=== PATIENT | female | born 1980 | race Caucasian/White ===

== ENCOUNTER → 2017-12-16 14:24 | Outpatient (CLI) | payer OTHER, SELFPAY | PROVIDERS: PCP Family Medicine; Visit Provider Physician Assistant | DX: N89.8 Other specified noninflammatory disorders of vagina (principal) | CPT/HCPCS: 87210 ==

== ENCOUNTER → 2018-04-04 09:30 | Outpatient (CLI) | payer OTHER, SELFPAY ==
--- NOTE | 2018-04-04 | DI.MG.S_ITS ---
BILATERAL DIGITAL SCREENING MAMMOGRAM 3D/2D WITH CAD WITH AUGMENTATION: 04/04/2018 CLINICAL: Routine screening. Comparison is made to exams dated: 04/03/2017 mammogram, 03/30/2015 mammogram, and 01/11/2013 mammogram - [facility]. There are scattered fibroglandular elements in both breasts. Current study was also evaluated with a Computer Aided Detection (CAD) system. Bilateral breast implants are stable. There are benign calcifications in both breasts. No significant masses, calcifications, or other findings are seen in either breast. There has been no significant interval change. IMPRESSION: There is no mammographic evidence of malignancy. A 1 year screening mammogram is recommended. NOTE: For mammograms, a report in lay terms will be sent to the patient. Approximately 15% of breast malignancies will not be visualized mammographically. In the management of a palpable breast mass, a negative mammogram must not discourage biopsy of a clinically suspicious lesion. Electronically Signed By: Addie leroy/shekhar:04/04/2018 14:50:45 letter sent: Normal Exam ACR BI-RADS Category 2: Benign Finding(s) 3342F
== END ==
PROVIDERS: PCP Family Medicine; Visit Provider Family Medicine
DX: Z12.31 Encounter for screening mammogram for malignant neoplasm of breast (principal)
CPT/HCPCS: 77063; 77067

== ENCOUNTER → 2018-04-20 08:33 | Outpatient (CLI) | payer OTHER, SELFPAY ==
[2018-04-24 11:45] LABS: Z- Score (Female) 1.3 SD (-2.0 - +2.0)
[2018-04-24 15:23] LABS: Progesterone 12.8 ng/mL
== END ==
PROVIDERS: PCP Family Medicine; Visit Provider Nurse Practitioner Family
DX: N95.9 Unspecified menopausal and perimenopausal disorder (principal); L65.9 Nonscarring hair loss, unspecified
CPT/HCPCS: 36415; 84144; 84305

== ENCOUNTER → 2018-08-09 08:17 | Outpatient (CLI) | payer OTHER, SELFPAY | PROVIDERS: PCP Family Medicine; Visit Provider Physician Assistant | DX: N39.0 Urinary tract infection, site not specified (principal) | CPT/HCPCS: 87077; 87086; 87186 ==

== ENCOUNTER → 2019-01-01 09:02 | Outpatient (CLI) | payer OTHER, SELFPAY | PROVIDERS: PCP Family Medicine; Visit Provider Physician Assistant | DX: N30.01 Acute cystitis with hematuria (principal) | CPT/HCPCS: 87077; 87086; 87186 ==

== ENCOUNTER → 2019-02-08 09:41 | Outpatient (CLI) | payer OTHER, SELFPAY ==
[2019-02-08 12:06] LABS: Urine N gonorrhoeae NOT DETECTED
[2019-02-08 12:13] LABS: Urine Chlamydia NOT DETECTED
== END ==
PROVIDERS: PCP Family Medicine; Visit Provider Physician Assistant
DX: N89.8 Other specified noninflammatory disorders of vagina (principal)
CPT/HCPCS: 87210; 87491; 87591

== ENCOUNTER → 2019-03-12 07:31 | Outpatient (CLI) | payer OTHER, SELFPAY ==
[2019-03-12 08:49] LABS: Add Manual Diff / Slide Review NO; Basophils Absolute Auto 0 /uL (0-100); Basophils Percent Auto 0.6 % (0-2); Eosinophils Absolute Auto 100 /uL (0-450); Eosinophils Percent Auto 2.9 % (2-4); Hematocrit 38.4 % (36-46); Lymphocytes Absolute Auto 1400 /uL (1100-4500); Lymphocytes Percent Auto 35.2 % (25-40); Mean Corpuscular HGB Conc 33.9 % (30-36); Mean Corpuscular Hemoglobin 30.3 PG (26-34); Mean Corpuscular Volume 89.3 fL (80-100); Monocytes Absolute Auto 300 /uL (0-900); Monocytes Percent Auto 6.5 % (3-14); Neutrophils Absolute Auto 2100 /uL (1500-7000); Neutrophils Percent Auto 54.8 % (50-75); Platelet Count 167 X10^3/uL (150-400); Red Cell Distribution Width 12.2 % (11.6-14.8); White Blood Cell Count 3.9 X10^3/uL (4.5-11.0)
[2019-03-12 08:57] LABS: Alanine Aminotransferase 16 IU/L (9-52); Albumin Globulin Ratio 1.5 (1.0-2.8); Alkaline Phosphatase 41 U/L (38-126); Aspartate Aminotransferase 20 IU/L (14-36); BUN Creatinine Ratio 22.9 (6-22); Bilirubin Total 0.8 mg/dL (0.2-1.3); Blood Urea Nitrogen 16 mg/dL (7-17); Calcium 9.2 mg/dL (8.4-10.2); Carbon Dioxide 26 mmol/L (22-32); Chloride 106 mmol/L (98-107); Cholesterol 173 mg/dL (140-199); Estimated Glomerular Filt Rate > 60.0 mL/min (>60); Globulin 2.7 g/dL (1.7-4.1); Glucose 102 mg/dL (70-100); HDL Cholesterol 53 mg/dL (40-60); HEMOLYSIS < 15 (0-50); LDL Cholesterol Calculated 102 mg/dL (<100); Potassium 3.8 mmol/L (3.4-5.1); Sodium 141 mmol/L (137-145); Total Protein 6.7 g/dL (6.3-8.2); Triglycerides 91 mg/dL (35-150)
[2019-03-12 09:27] LABS: Ferritin 83.3 ng/mL (6.27-137)
[2019-03-12 09:38] LABS: TSH w/ Reflex to FT4 2.79 uIU/mL (0.47-4.68)
== END ==
PROVIDERS: PCP Family Medicine; Visit Provider Family Medicine
DX: E03.9 Hypothyroidism, unspecified (principal); L65.9 Nonscarring hair loss, unspecified
CPT/HCPCS: 36415; 80053; 80061; 82728; 84443; 85025

== ENCOUNTER → 2019-04-10 09:32 | Outpatient (CLI) | payer OTHER, SELFPAY ==
--- NOTE | 2019-04-10 | DI.MG.S_ITS ---
BILATERAL DIGITAL SCREENING MAMMOGRAM 3D/2D WITH CAD WITH AUGMENTATION: 04/10/2019 CLINICAL: Patient presents for routine screening. S/P bilateral augmentation. Comparison is made to exams dated: 04/04/2018 mammogram, 04/03/2017 mammogram, and 03/30/2015 mammogram - [facility]. The tissue of both breasts is heterogeneously dense. This may lower the sensitivity of mammography. Current study was also evaluated with a Computer Aided Detection (CAD) system. Bilateral breast implants are stable. There are benign calcifications in both breasts. No significant masses, calcifications, or other findings are seen in either breast. There has been no significant interval change. IMPRESSION: There is no mammographic evidence of malignancy. A 1 year screening mammogram is recommended. This exam was interpreted at Station ID: [id number]. NOTE: For mammograms, a report in lay terms will be sent to the patient. Approximately 15% of breast malignancies will not be visualized mammographically. In the management of a palpable breast mass, a negative mammogram must not discourage biopsy of a clinically suspicious lesion. Electronically Signed By: Conor tam/shekhar:04/10/2019 10:38:43 letter sent: Normal Exam ACR BI-RADS Category 2: Benign Finding(s) 3342F
== END ==
PROVIDERS: PCP Family Medicine; Visit Provider Family Medicine
DX: Z12.31 Encounter for screening mammogram for malignant neoplasm of breast (principal); Z98.82 Breast implant status
CPT/HCPCS: 77063; 77067

== ENCOUNTER → 2019-07-02 16:35 | Outpatient (CLI) | payer OTHER, SELFPAY ==
[2019-07-04 16:22] LABS: Urea Breath Test >18YRS NOT DETECTED
== END ==
PROVIDERS: PCP Family Medicine; Referring Provider Family Medicine; Visit Provider Family Medicine
DX: K21.9 Gastro-esophageal reflux disease without esophagitis (principal)
CPT/HCPCS: 83013

== ENCOUNTER → 2019-12-27 09:46 | Outpatient (CLI) | payer OTHER, SELFPAY ==
--- NOTE | 2019-12-27 09:50 | DI.MG.S_ITS ---
BILATERAL DIGITAL DIAGNOSTIC MAMMOGRAM 3D/2D WITH AUGMENTATION: 12/27/2019 CLINICAL: Possible Implant rupture. Painful left breast. Comparison is made to exams dated: 04/10/2019 mammogram, 04/04/2018 mammogram, and 04/03/2017 mammogram - [facility]. The tissue of both breasts is heterogeneously dense. This may lower the sensitivity of mammography. No significant masses, calcifications, or other findings are seen in either breast. IMPRESSION: INCOMPLETE: NEEDS ADDITIONAL IMAGING EVALUATION There is no abnormality seen in the left breast to correspond with the pain, however, breast MRI is recommended. There is no abnormality seen in the left breast to correspond with the palpable abnormality at 3 o'clock, however, ultrasound is recommended. This exam was interpreted at Station ID: [id number]. NOTE: For mammograms, a report in lay terms will be sent to the patient. Approximately 15% of breast malignancies will not be visualized mammographically. In the management of a palpable breast mass, a negative mammogram must not discourage biopsy of a clinically suspicious lesion. Electronically Signed By: Onel sampson/shekhar:12/27/2019 10:24:58 copy to: Sabina Shea, ph: [phone], fax: [phone] ACR BI-RADS Category 0: Incomplete 3340F
--- NOTE | 2019-12-27 09:51 | DI.MRI.S_ITS ---
BREAST MRI OF BOTH BREASTS: 12/27/2019 CLINICAL: Implant rupture. Comparison is made to exams dated: 12/27/2019 ultrasound, 12/27/2019 mammogram, 04/10/2019 mammogram, and 04/04/2018 mammogram - [facility]. Interpretation of this MRI was correlated with available mammograms and ultrasounds. The patient was placed prone in a dedicated breast imaging coil. Axial T1 and STIR, axial silicone specific STIR , sagittal T2 with fat saturation, sagittal silicone specific STIR, and coronal T2 obtained. Image quality: There is inhomogeneous fat saturation limiting evaluation. Right breast: A subpectoral silicone implant appears intact. Internal radial folds are demonstrated. No evidence of intracapsular or extracapsular rupture. No discrete mass or fluid collection demonstrated in the right breast in the absence of intravenous contrast. Left breast: A subpectoral silicone implant is demonstrated. There are asymmetric internal curvilinear filling defects within the implant capsule consistent with an intracapsular rupture. No evidence of extracapsular implant rupture. No extracapsular fluid collections identified in the left breast. No discrete mass identified in the absence of intravenous contrast. Miscellaneous: Within the anterior mediastinum, there is a thin-walled cyst measuring approximately 3.5 x 3.9 cm in transverse dimension likely representing a pericardial cyst. This is incompletely evaluated on the current study. No axillary or internal mammary lymphadenopathy by size criteria. IMPRESSION: 1. Findings consistent with left intracapsular implant rupture. No evidence of extracapsular rupture. 2. No extracapsular fluid collection demonstrated in the left breast. The findings on prior ultrasound likely represented a small loculated intracapsular fluid collection associated with intracapsular rupture. Recommend clinical follow-up of patient's pain symptoms. 3. Cystic collection demonstrated anteriorly within this mediastinum suggestive of a pericardial cyst. Further evaluation may be obtained with a chest CT with contrast. Return to annual mammogram screening schedule is recommended. This exam was interpreted at Station ID: [id number]. Electronically Signed By: Onel Frey M.D. ddjanes/:12/27/2019 13:29:48 copy to: Sabina Shea, ph: [phone], fax: [phone] letter sent: Clinical Evaluation ACR BI-RADS Category 2: Benign Finding(s) 3342F
--- NOTE | 2019-12-27 09:51 | DI.US.S_ITS ---
LIMITED ULTRASOUND OF LEFT BREAST: 12/27/2019 CLINICAL: Patient feels ripple in implant. Possible implant rupture. Comparison is made to exams dated: 12/27/2019 mammogram, 04/10/2019 mammogram, 04/04/2018 mammogram, 04/03/2017 mammogram, 03/30/2015 mammogram, and 01/11/2013 mammogram - [facility]. Color flow and real-time ultrasound of the left breast 3-5 o'clock region were performed on the areas of interest. There is a 1.9 cm x 1.4 cm x 0.8 cm irregular fluid collection in the left breast at 4 o'clock middle depth along the margin of the implant. This irregular fluid collection is hypoechoic. This correlates to the reported pain. Color flow imaging demonstrates that there is no vascularity present. IMPRESSION: INCOMPLETE: NEEDS ADDITIONAL IMAGING EVALUATION The 1.9 cm x 1.4 cm x 0.8 cm irregular fluid collection in the left breast is indeterminate and may relect implant rupture. An MRI is recommended. There is no abnormality seen in the left breast to correspond with the palpable abnormality at 3 o'clock, however, breast MRI is recommended and will be performed at the conclusion of this study. This exam was interpreted at Station ID: [id number]. Electronically Signed By: Onel Frey M.D. ddjanes/:12/27/2019 11:25:05 copy to: Vanige Berger, Sabina Ramires, ph: [phone], fax: [phone] Ultrasound BI-RADS: 0 Indeterminate
== END ==
PROVIDERS: PCP Family Medicine; Referring Provider Specialist; Visit Provider Specialist
DX: R92.8 Other abnormal and inconclusive findings on diagnostic imaging of breast (principal); T85.41XA Breakdown (mechanical) of breast prosthesis and implant, initial encounter; N64.4 Mastodynia; I31.8 Other specified diseases of pericardium
CPT/HCPCS: 76642; 77049; 77066; G0279; A9579

== ENCOUNTER → 2020-01-31 14:40 | Outpatient (CLI) | payer OTHER, SELFPAY | PROVIDERS: PCP Family Medicine; Visit Provider Physician Assistant | DX: B37.9 Candidiasis, unspecified (principal) | CPT/HCPCS: 87210 ==

== ENCOUNTER → 2020-02-11 15:41 | Outpatient (CLI) | payer OTHER, SELFPAY | PROVIDERS: PCP Family Medicine; Visit Provider Nurse Practitioner Family | DX: N89.8 Other specified noninflammatory disorders of vagina (principal) | CPT/HCPCS: 87210 ==

== ENCOUNTER → 2020-02-20 07:26 | Outpatient (CLI) | payer OTHER, SELFPAY ==
[2020-02-20 08:37] LABS: BUN Creatinine Ratio 16.7 (6-22); Blood Urea Nitrogen 13 mg/dL (7-17); Calcium 9.5 mg/dL (8.4-10.2); Carbon Dioxide 28 mmol/L (22-32); Chloride 105 mmol/L (98-107); Estimated Glomerular Filt Rate > 60.0 mL/min (>60); Glucose 92 mg/dL (70-100); HEMOLYSIS < 15 (0-50); Potassium 4.4 mmol/L (3.4-5.1); Sodium 141 mmol/L (137-145)
== END ==
PROVIDERS: PCP Family Medicine; Referring Provider Nurse Practitioner; Visit Provider Nurse Practitioner
DX: Q24.8 Other specified congenital malformations of heart (principal)
CPT/HCPCS: 36415; 80048

== ENCOUNTER → 2020-03-09 07:40 | Outpatient (CLI) | payer OTHER, SELFPAY ==
--- NOTE | 2020-03-09 | DI.NM.S_ITS ---
PROCEDURE: NM GASTRIC EMPTYING STUDY RADIOPHARMACEUTICAL: 1 mCi Tc-99m sulfur colloid in an egg sandwich. INDICATIONS: Gastritis,PERICARDIAL CYST. TECHNIQUE: A Tc-99m labeled sulfur colloid labeled egg sandwich or oatmeal was served to the patient. Anterior and posterior planar images of the abdomen were obtained at 0 minutes and 30 minutes, then at hourly intervals up to 4 hours. The patient was upright and ambulating during the interval. COMPARISON: [facility], CT, CT CHEST [facility], 03/09/2020, 10:34. FINDINGS: The stomach has normal size, morphology, and position. There is normal emptying of solid gastric contents from the stomach by visual inspection. No gastroesophageal reflux is visualized. The percentage of tracer retained at specific time points are as follows: Time point Percent gastric retention Normal range 30 minutes 70% 70% or more 1 hour 39% 30% to 90% 2 hours 9% 60% or less 3 hours -- 30% or less 4 hours - 10% or less IMPRESSION: Normal gastric emptying time. Dictated by: Parmjit Mariano M.D. on 03/09/2020 at 11:53 Approved by: Parmjit Mariano M.D. on 03/09/2020 at 12:02
--- NOTE | 2020-03-09 09:18 | DI.CT.S_ITS ---
PROCEDURE: CT CHEST W CON INDICATIONS: Gastritis, PERICARDIAL CYST TECHNIQUE: After the administration of intravenous contrast, 5 mm thick sections acquired from the pulmonary apices to the posterior costophrenic angles. 1 mm axial lung, 5 mm thick coronal and sagittal reformats and 7 mm axial MIP were acquired. For radiation dose reduction, the following was used: automated exposure control, adjustment of mA and/or kV according to patient size. COMPARISON: [facility], MR, MR BREAST BI WO/W CON, 12/27/2019, 11:18. FINDINGS: Image quality: Excellent. Lungs and pleura: No acute air space opacities. Right upper lobe subpleural pulmonary nodule measuring 0.4 cm, (3/49). Left upper lobe calcified granuloma. Biapical pleural scarring. No pleural effusions or pneumothorax. Central and peripheral airways are patent and normal in caliber. Mediastinum: Heart size is normal. No pericardial effusion. No mediastinal or hilar adenopathy by size criteria. Thoracic aorta and central pulmonary arteries are normal in size. Esophagus is normal in caliber. No hiatal hernia. Bones and chest wall: Bilateral breast implants. Irregularity of the left breast implant. No suspicious bony lesions. No vertebral body compression fractures. No axillary or supraclavicular adenopathy by size criteria. Thyroid gland is unremarkable. Abdomen: A pericardiac or intrahepatic homogeneous hypodense benign cyst measuring 4.5 x 4.2 cm. This appears to be below the diaphragm. On recent MRI this was uniformly T1 hypointense and T2 hyperintense. No adrenal nodule. Stomach is decompressed. No free fluid in the upper abdomen. IMPRESSION: 1. Lungs are clear. 2. Tiny 4 mm pulmonary nodule in the lower right upper lobe. 3. Upper abdominal midline benign cyst measuring 4.5 cm. Hepatic cysts favored over pericardiac cyst given its location below the diaphragm. 4. No free fluid in the upper abdomen. Dictated by: Sam Andrew M.D. on 03/09/2020 at 11:41 Approved by: Sam Andrew M.D. on 03/09/2020 at 11:56
== END ==
PROVIDERS: PCP Family Medicine; Referring Provider Family Medicine; Visit Provider Student in an Organized Health Care Education/Training Program
DX: K29.70 Gastritis, unspecified, without bleeding (principal); K30 Functional dyspepsia; I31.8 Other specified diseases of pericardium
CPT/HCPCS: 71260; 78264; A9541; Q9967

== ENCOUNTER → 2020-03-12 06:50 | Outpatient (CLI) | payer OTHER, SELFPAY ==
--- NOTE | 2020-03-12 | DI.ECHO.S_ITS ---
[facility] +---------+ : : [address] [place] : : : : [id number] : : : : Phone: [phone]+ Echocardiogram Report + + :Name: ALLYSON MOSS Study Date: 03/12/2020 Height: 65 in : :[facility] Weight: 127 lb: : Gender: Female BSA: 1.6 m2 : :: 1980 Age: 40 yrs BP: 98/60 mmHg: :Reason For Study: PERICARDIAL CYST : :Ordering Physician: Niru S : :Nigel Weinstein Performed By: Charlie Appiah : :Referring: UNSPECIFIED : + + Interpretation Summary The left ventricle is normal in size. The ejection fraction is estimated to be 60-65%. The right ventricle is normal in size and function. No significant valvular pathology seen. The IVC is dilated (diameter is greater than 2.1 cm) yet it collapses greater than 50% with a sniff. This suggests a right atrial pressure of 8 mm Hg. There is no pericardial effusion. No obvious pericardial cyst. Incidental finding of a hepatic cyst measuring approximately 3.8 cm x 3.8 cm is noted. Procedure: A two-dimensional transthoracic echocardiogram with color flow and Doppler was performed. The study quality was technically adequate. There is no prior echocardiogram noted for this patient. The patient was in normal sinus rhythm during the exam. Left Ventricle: The left ventricle is normal in size. There is normal left ventricular wall thickness. There is no thrombus. The ejection fraction is estimated to be 60-65%. There are no focal wall motion abnormalities. Diastolic parameters suggest a relaxation abnormality of the left ventricle, consistent with probable normal filling pressures. Right Ventricle: The right ventricle is normal in size and function. Atria: Both atria are normal in size. The interatrial septum grossly appears intact with no obvious evidence for an atrial septal defect. Mitral Valve: The mitral valve leaflets are slightly calcified. There is trace mitral regurgitation. Aortic Valve: The aortic valve is trileaflet. The aortic valve opens well. There is no aortic valve stenosis. No aortic regurgitation is present. Tricuspid Valve: The tricuspid valve is normal in structure and function. Pulmonary artery pressures cannot be estimated because of the lack of a measurable TR jet velocity. There is trace tricuspid regurgitation. Pulmonic Valve: The pulmonic valve is not well visualized. There is trace pulmonic regurgitation. Great Vessels: The aortic root is normal size. The dimensions of the ascending aorta are normal. The pulmonary artery is normal size. The IVC is dilated (diameter is greater than 2.1 cm) yet it collapses greater than 50% with a sniff. This suggests a right atrial pressure of 8 mm Hg. Pericardium/ Pleura There is no pericardial effusion. Incidental finding of a hepatic cyst measuring approximately 3.8 cm in diameter is noted. There is an anterior echo-free space consistent with a fat pad. There is no pleural effusion. MMode/2D Measurements & Calculations LVIDd: 4.2 cm LVOT diam: 2.0 cm LVIDs: 3.3 cm Ao root diam: 2.7 cm FS: 19.5 % asc Aorta Diam: 3.0 cm EPSS: 0.30 cm Ao Arch Diam (Prox Trans): 2.0 cm IVSd: 0.68 cm LVPWd: 0.80 cm LV whitney. diameter/BSA (cm/m^2): 2.5 LV sys. diameter/BSA (cm/m^2): 2.0 LA dimension: 3.5 cm RA long axis: 4.3 cm LA A2 area: 14.5 cm2 RA area: 12.3 cm2 LA A4 area: 18.1 cm2 RA vol: 29.7 ml LA length (vol): 5.2 cm RA : 18.2 ml/m2 LA vol: 42.8 ml IVC diam: 2.4 cm LA vol index: 26.2 ml/m2 TAPSE: 1.8 cm Doppler Measurements & Calculations Ao V2 max: 137.2 cm/sec LVOT Max Kota: 95.3 cm/sec Ao V2 mean: 107.2 cm/sec LV V1 max P.6 mmHg Ao max P.5 mmHg LV V1 VTI: 23.8 cm Ao mean P.9 mmHg PAWEL(I,D): 2.5 cm2 Ao V2 VTI: 28.5 cm PAWEL(V,D): 2.1 cm2 sev ratio: 0.83 PAWEL indexed to BSA (cm^2/m^2): 1.5 MV E max kota: 76.9 cm/sec PA V2 max: 76.1 cm/sec MV A max kota: 72.0 cm/sec PA V2 mean: 58.5 cm/sec MV E/A: 1.1 PA mean P.5 mmHg Med Peak E' Kota: 10.2 cm/sec PA pr(Accel): 12.2 mmHg E/E' med: 7.5 Lat Peak E' Kota: 9.8 cm/sec E/E' lat: 7.9 E/e' average: 7.7 MV dec time: 0.19 sec SV(OT): 71.7 ml Reading Physician:05:51 PM
== END ==
PROVIDERS: PCP Family Medicine; Referring Provider Family Medicine; Visit Provider Nurse Practitioner
DX: Q24.8 Other specified congenital malformations of heart (principal); K76.89 Other specified diseases of liver
CPT/HCPCS: 93306

== ENCOUNTER → 2020-04-04 08:02 | Outpatient (CLI) | payer OTHER, SELFPAY ==
[2020-04-04 09:42] LABS: Add Manual Diff / Slide Review NO; Basophils Absolute Auto 0 /uL (0-100); Basophils Percent Auto 0.7 % (0-2); Eosinophils Absolute Auto 100 /uL (0-450); Eosinophils Percent Auto 1.5 % (2-4); Hematocrit 40.9 % (36-46); Hemoglobin 13.7 g/dL (12.0-16.0); Lymphocytes Absolute Auto 1200 /uL (1100-4500); Lymphocytes Percent Auto 35.8 % (25-40); Mean Corpuscular HGB Conc 33.4 % (30-36); Mean Corpuscular Volume 89.7 fL (80-100); Monocytes Absolute Auto 200 /uL (0-900); Monocytes Percent Auto 5.8 % (3-14); Neutrophils Absolute Auto 1900 /uL (1500-7000); Neutrophils Percent Auto 56.2 % (50-75); Platelet Count 130 X10^3/uL (150-400); Red Blood Cell Count 4.56 X10^6/uL (4.0-5.2); Red Cell Distribution Width 12.4 % (11.6-14.8); White Blood Cell Count 3.4 X10^3/uL (4.5-11.0)
[2020-04-04 10:12] LABS: Alanine Aminotransferase 36 IU/L (<35); Albumin 4.4 g/dL (3.5-5.0); Albumin Globulin Ratio 1.4 (1.0-2.8); Alkaline Phosphatase 60 U/L (38-126); Aspartate Aminotransferase 31 IU/L (14-36); BUN Creatinine Ratio 26.9 (6-22); Bilirubin Total 0.9 mg/dL (0.2-1.3); Blood Urea Nitrogen 21 mg/dL (7-17); Calcium 9.7 mg/dL (8.4-10.2); Carbon Dioxide 30 mmol/L (22-32); Chloride 104 mmol/L (98-107); Estimated Glomerular Filt Rate > 60.0 mL/min (>60); Globulin 3.1 g/dL (1.7-4.1); Glucose 94 mg/dL (70-100); HEMOLYSIS < 15 (0-50); Potassium 3.9 mmol/L (3.4-5.1); Sodium 138 mmol/L (137-145); Total Protein 7.5 g/dL (6.3-8.2)
[2020-04-04 10:43] LABS: TSH w/ Reflex to FT4 1.54 uIU/mL (0.47-4.68)
[2020-04-06 11:39] LABS: SARS CoV19 IgG Negative (Negative)
== END ==
PROVIDERS: PCP Family Medicine; Referring Provider Family Medicine; Visit Provider Family Medicine
DX: Z00.01 Encounter for general adult medical examination with abnormal findings (principal); E03.9 Hypothyroidism, unspecified
CPT/HCPCS: 36415; 80053; 84443; 85025; 86769

== ENCOUNTER → 2020-04-11 09:22 | Outpatient (CLI) | payer OTHER, SELFPAY ==
[2020-04-11 10:14] LABS: COVID19 -Nasal RAPID Negative (Negative)
== END ==
PROVIDERS: PCP Family Medicine; Visit Provider Physician Assistant
DX: Z11.59 Encounter for screening for other viral diseases (principal)
CPT/HCPCS: 87635

== ENCOUNTER → 2020-05-14 10:00 | Outpatient (CLI) | payer OTHER, SELFPAY ==
--- NOTE | 2020-05-14 10:12 | DI.CT.S_ITS ---
PROCEDURE: CT ABDOMEN WO/W CON INDICATIONS: ABNORMAL FINDINGS ON DIAGNOSTIC IMAGING TECHNIQUE: 4 phase scanning was performed. Non-contrast 5 mm axial sections acquired from the diaphragm to the iliac crests. Following the administration of intravenous contrast, 5 mm thick arterial-phase, portal venous-phase, and 5-minute delayed phase images were acquired through the liver. 5 mm thick coronal and sagittal reformats were performed. For radiation dose reduction, the following was used: automated exposure control, adjustment of mA and/or kV according to patient size. COMPARISON: [facility] [place], [place], [place] GASTRIC EMPTYING STUDY, 03/09/2020, 8:08. [facility], CT, CT CHEST W CON, 03/09/2020, 10:34. FINDINGS: Image quality: Excellent. Lung bases: Lung bases are clear. Heart size is normal. Note is made of bilateral breast implants. Liver: There is a 3.8 x 4.1 x 3.7 cm simple appearing cyst in the superior aspect of segment IV, unchanged compared to 03/09/2020. Other solid organs: Gallbladder is normal . Biliary system is non dilated. Pancreas is normal in morphology. Spleen is normal in size and enhancement. No adrenal nodules. Both kidneys demonstrate normal size and enhancement, without hydronephrosis or nephrolithiasis. Nodes and vessels: No retroperitoneal or mesenteric adenopathy by size criteria. Aorta and inferior vena cava are normal in size. Bowel and peritoneum: Unenhanced bowel loops are normal in caliber. No free fluid or air. Bones: No suspicious bony lesions. No vertebral body compression fractures. Miscellaneous: No ventral hernias. IMPRESSION: 1. A 3.8 x 4.1 x 3.7 cm benign cyst in the superior aspect of segment IV of liver, unchanged in size. No further follow-up is recommended. Dictated by: Parmjit Mariano M.D. on 05/14/2020 at 16:39 Approved by: Parmjit Mariano M.D. on 05/14/2020 at 16:45
== END ==
PROVIDERS: PCP Family Medicine; Referring Provider Student in an Organized Health Care Education/Training Program; Visit Provider Student in an Organized Health Care Education/Training Program
DX: R93.5 Abnormal findings on diagnostic imaging of other abdominal regions, including retroperitoneum (principal); K76.89 Other specified diseases of liver
CPT/HCPCS: 74170; Q9967

== ENCOUNTER → 2020-06-03 10:18 | Outpatient (CLI) | payer OTHER, SELFPAY ==
[2020-06-03 12:55] LABS: COVID19 -Nasal RAPID Negative (Negative)
== END ==
PROVIDERS: PCP Family Medicine; Visit Provider Nurse Practitioner
DX: Z20.822 Contact with and (suspected) exposure to COVID-19 (principal)
CPT/HCPCS: 87635

== ENCOUNTER → 2021-01-04 16:34 | Outpatient (CLI) | payer OTHER, SELFPAY | PROVIDERS: PCP Family Medicine; Visit Provider Nurse Practitioner | DX: N89.8 Other specified noninflammatory disorders of vagina (principal) | CPT/HCPCS: 87210 ==

== ENCOUNTER → 2021-01-12 10:45 | Outpatient (CLI) | payer OTHER, SELFPAY ==
--- NOTE | 2021-01-12 10:46 | DI.US.S_ITS ---
PROCEDURE: US PELVIC COMPLETE INDICATIONS: CRAMPING, CLOTTING TECHNIQUE: Real-time scanning was performed of the pelvic organs, with image documentation. Additional endovaginal scanning was necessary due to incomplete visualization of the adnexal and endometrial structures by transabdominal scanning. COMPARISON: [facility], [place], PELVIC COMPLETE, 08/13/2010, 9:56. FINDINGS: Uterus: Uterus is normal in size at 5.0 x 5.6 x 8.3 cm, retroverted. The endometrium measures 5.6 mm in combined thickness. Ovaries: The right ovary measures 2.3 x 0.8 x 1.6 cm and the left measures 2.4 x 1.6 x 2.2 cm containing a small simple cyst measuring up to 1.5 cm. Other: No pathologic free abdominal or pelvic fluid. IMPRESSION: Normal appearing uterus and ovaries bilaterally, incidental note is made of a 1.5 cm simple left ovarian cyst. Source of reported cramping, pain and vaginal episodic bleeding is not seen. Dictated by: Felipe Moncada M.D. on 01/12/2021 at 12:47 Approved by: Felipe Moncada M.D. on 01/12/2021 at 12:49
== END ==
PROVIDERS: PCP Family Medicine; Referring Provider Nurse Practitioner; Visit Provider Nurse Practitioner
DX: R10.2 Pelvic and perineal pain (principal); N83.292 Other ovarian cyst, left side
CPT/HCPCS: 76830; 76856

== ENCOUNTER 2021-02-11 08:46 | Emergency (ER) | payer OTHER, SELFPAY ==
[2021-02-11] VITALS (8 sets, daily range): BP systolic 106–122; BP diastolic 69–78; PULSE 99–133; RESP 14–20; TEMP 36.7; O2SAT 99–100; BMI 20.7
--- NOTE | 2021-02-11 09:16 | DI.RAD.S_ITS ---
PROCEDURE: XR CHEST 1V INDICATIONS: Arrhythmia TECHNIQUE: One view of the chest was acquired. COMPARISON: None. FINDINGS: Surgical changes and devices: None. Lungs and pleura: Lungs are clear. No pleural effusions or pneumothorax. Mediastinum: Mediastinal contours appear normal. Heart size is normal. Bones and chest wall: No suspicious bony lesions. Overlying soft tissues appear unremarkable. IMPRESSION: No evidence acute pulmonary process. Dictated by: Gaurav Acosta M.D. on 02/11/2021 at 9:47 Approved by: Gaurav Acosta M.D. on 02/11/2021 at 9:48
[2021-02-11] MEDS: SODIUM CHLORIDE 0.9% 1,000 ML 1000 ML IV (09:31)
[2021-02-11 09:33] LABS: Add Manual Diff / Slide Review NO; Basophils Absolute Auto 0 /uL (0-100); Eosinophils Absolute Auto 0 /uL (0-450); Eosinophils Percent Auto 0.7 % (2-4); Hematocrit 40.9 % (36-46); Hemoglobin 13.9 g/dL (12.0-16.0); Lymphocytes Absolute Auto 1200 /uL (1100-4500); Lymphocytes Percent Auto 27.9 % (25-40); Mean Corpuscular HGB Conc 34.1 % (30-36); Mean Corpuscular Hemoglobin 30.4 PG (26-34); Mean Corpuscular Volume 89.3 fL (80-100); Monocytes Absolute Auto 200 /uL (0-900); Monocytes Percent Auto 5.3 % (3-14); Neutrophils Absolute Auto 2800 /uL (1500-7000); Neutrophils Percent Auto 65.1 % (50-75); Platelet Count 132 X10^3/uL (150-400); Red Blood Cell Count 4.58 X10^6/uL (4.0-5.2); Red Cell Distribution Width 12.7 % (11.6-14.8); White Blood Cell Count 4.4 X10^3/uL (4.5-11.0)
[2021-02-11 09:38] LABS: Prothrombin Time 11.4 SECONDS (10.1-12.7)
[2021-02-11 09:39] LABS: Alanine Aminotransferase 21 IU/L (<35); Albumin 4.5 g/dL (3.5-5.0); Albumin Globulin Ratio 1.4 (1.0-2.8); Alkaline Phosphatase 53 U/L (38-126); Aspartate Aminotransferase 30 IU/L (14-36); BUN Creatinine Ratio 22.4 (6-22); Bilirubin Total 0.7 mg/dL (0.2-1.3); Blood Urea Nitrogen 15 mg/dL (7-17); Calcium 9.5 mg/dL (8.4-10.2); Carbon Dioxide 29 mmol/L (22-32); Chloride 104 mmol/L (98-107); Creatine Kinase 36 U/L (30-135); Estimated Glomerular Filt Rate > 60.0 mL/min (>60); Globulin 3.3 g/dL (1.7-4.1); Glucose 125 mg/dL (70-100); Magnesium 1.9 mg/dL (1.6-2.3); Potassium 3.8 mmol/L (3.4-5.1); Sodium 139 mmol/L (137-145); Total Protein 7.8 g/dL (6.3-8.2)
[2021-02-11 09:40] LABS: HEMOLYSIS 51 (0-50)
[2021-02-11 09:41] LABS: D Dimer < 200 ng/mL (<230); PTT Partial Thromboplastin Tim 23 SECONDS (26.4-36.2)
--- NOTE | 2021-02-11 09:42 | ED.ARRPALP ---
HPI - Arrhythmia/Palpitations General Chief Complaint: Arrhythmia/Palpitations Stated Complaint: having an arythmia Time Seen by Provider: 02/11/21 09:04 Source: patient Mode of arrival: Ambulatory Limitations: no limitations History of Present Illness HPI narrative: This is a 41-year-old female comes emergency department with complaint of tachycardia. Patient has had symptoms for the last month. She noticed initially that are heart rate would stay elevated after exercise or that her heart rate would elevate and stay elevated while she was exercising to and higher normal range. She feels that it is fast at this time. She states her resting heart rates usually in the 80s when she sleeping she is in the 70s. When she is walking all persistently be up to 115-120 when she showers woke up to 150. She has Fitbit watch that she wears. Patient had 1 syncopal episode 3 weeks ago after standing up very quickly. She has not had any more episodes. She has had frequent feelings of lightheadedness even in the past. She has felt anxious before with stress but took a lorazepam which helped her anxiety but did not help her heart rate. She does not feel particularly stressed or anxious at this time. She denies any chest pain or pressure she denies any shortness of breath. No nausea or vomiting. She has chronic constipation and takes MiraLax daily for this. She denies any urinary symptoms. No swelling in her lower extremities. She does have a history of hypothyroidism and is on levothyroxine 88 micro g and with the thyroxine 5, she takes singular daily and low-dose iron as well as vitamin B and probiotic. She had breast implants in May. She is allergic to penicillin and gets hives. No tobacco, alcohol or illicit. Her dad had 2 heart attacks starting in his 70s. He follows with local cardiology and has known PVCs but no other heart arrhythmias. She saw Cardiology in the past year as they thought they saw a cardiac cyst. She saw the taxicab coordinator and was told that was normal. She had her thyroid checked a week ago. Related Data Home Medications Medication Instructions Recorded Confirmed polyethylene glycol 3350 17 17 gm PO Q DAY #0 10/05/11 01/04/21 gram/dose oral powder (Miralax) montelukast 10 mg tablet 10 mg PO QDAY #0 04/16/12 01/04/21 (Singulair) MULTIVITAMIN 1 tab PO QDAY #0 01/05/13 08/09/21 [CALCIUM & VIT D] PO QDAY #0 06/02/12 01/04/21 liothyronine 5 mcg tablet (Cytomel) 5 mcg PO DAILY 02/28/18 01/04/21 ferrous sulfate 325 mg (65 mg 325 mg PO DAILY #0 tab 02/11/20 01/04/21 iron) tablet (Iron (ferrous sulfate)) levothyroxine 88 mcg tablet 88 mcg PO DAILY 02/11/20 01/04/21 probiotic PO 02/11/20 01/04/21 vitamin B comp and C no.3 15 mg-10 1 cap PO DAILY 02/11/20 01/04/21 mg-50 mg-5 mg-300 mg capsule (B Complex Plus Vitamin C) Previous Rx's Medication Instructions Recorded eletriptan 40 mg tablet 40 mg PO Q2-4H PRN #12 tab 03/20/18 lorazepam 0.5 mg tablet 0.5 mg PO DAILY PRN #7 tab 03/13/19 sertraline 50 mg tablet 50 mg PO DAILY #30 tab 08/24/20 Allergies Allergy/AdvReac Type Severity Reaction Status Date / Time miconazole [From Monistat 3] Allergy Mild vaginal Verified 01/04/21 17:06 swelling skin cleanser combination Allergy Mild vaginal Verified 01/04/21 17:06 no.17 swelling [From Monistat 3] tioconazole Allergy Mild pain, itch Verified 01/04/21 17:06 [From Monistat 1 (tioconazole)] adhesive [ADHESIVE] Allergy Unknown RED, HOT Verified 01/04/21 17:06 TO TOUCH Penicillins [PENICILLINS] Allergy Unknown Verified 01/04/21 17:06 Review of Systems Review of Systems ROS Unobtainable: All systems reviewed & are unremarkable except as noted in HPI and below Patient History Medical History (Updated 02/11/21 @ 11:39 by Lyndsey Galvez DO) Asthma Depression Hypoglycemia Seasonal allergies Surgical History History of breast augmentation Status post tubal ligation Family History Father CAD (coronary artery disease) Mother Diabetes mellitus Social History marital status: Smoking Status: Never smoker alcohol intake: current (1-3 A WEEK ) substance use type: does not use Smoking Status: Never smoker Substance Use Type: does not use Exam Narrative Exam Narrative: GENERAL: Alert and oriented x three, female in mild distress. Patient is thin and appears to be quite physically active. HEENT: Head normocephalic, atraumatic, EOMI, pupils reactive, face symmetric, moist mucous membranes NECK: Supple, full range of motion CARDIOVASCULAR: Tachycardic but Regular rate and rhythm without murmurs, rubs or gallops. No JVD. No swelling in bilateral lower extremities. RESPIRATORY: Breath sounds equal bilaterally, no wheezes rales or rhonchi. ABDOMEN: Soft, nontender. Normoactive bowel sounds all 4 quadrants. No guarding or rebound, rigidity, no mass : No CVA tenderness EXTREMITIES: Normal range of motion, no clubbing or edema. Neurovascularly intact NEUROLOGICAL: Cranial nerves II through XII grossly intact. Moving all extremities SKIN: Warm, dry, no petechiae, no rashes or lesions. Initial Vital Signs Initial Vital Signs: Vital Signs Pulse Rate 132 H 02/11/21 08:57 Blood Pressure 115/77 02/11/21 08:57 Pulse Oximetry 99 02/11/21 08:57 Scores PERC Score Age greater than or equal to 50 years: No Heart rate greater than or equal to 100 bpm: Yes Room Air O2 Sat less than 95%: No Unilateral leg swelling: No Recent trauma or surgery: No Hemoptysis: No Prior PE or DVT: No Hormone Use: No Total PERC Score: 1 Course Orders Ordered: Discontinued Medications Sodium Chloride (Normal Saline 0.9%) 1,000 mls @ 1,000 mls/hr IV BOLUS ONE Stop: 02/11/21 10:15 Last Infusion: 02/11/21 10:57 Dose: 0 mls/hr Documented by: Admin: 02/11/21 09:31 Dose: 1,000 mls/hr Documented by: TARYN Consultations Consultation #1: Dr. Eaton, spoke with cardiology who recommends outpatient follow-up at this time. He asked that we fax labs. We reviewed her EKG, her rhythm strips here in the fact that her heart rate has bounced around but she has been consistently tachycardic but does not appear to be a underlying flutter. Time: 11:35 Vital Signs Vital signs: Vital Signs - 8 hr 02/11/21 11:00 02/11/21 11:30 Pulse Rate 101 H 100 H Respiratory Rate 16 17 Blood Pressure 120/71 120/73 Pulse Oximetry 100 100 MDM - Arrhythmia/Palpitations Lab Data Result diagrams: 02/11/21 09:07 02/11/21 09:07 Labs: Lab Results 02/11/21 02/11/21 02/11/21 Range/Units 09:07 09:07 09:07 WBC 4.4 L (4.5-11.0) X10^3/uL RBC 4.58 (4.0-5.2) X10^6/uL Hgb 13.9 (12.0-16.0) g/dL Hct 40.9 (36-46) % MCV 89.3 (80-100) fL MCH 30.4 (26-34) PG MCHC 34.1 (30-36) % RDW 12.7 (11.6-14.8) % Plt Count 132 L (150-400) X10^3/uL Neut % (Auto) 65.1 (50-75) % Lymph % (Auto) 27.9 (25-40) % [place] % (Auto) 5.3 (3-14) % Eos % (Auto) 0.7 L (2-4) % Baso % (Auto) 1.0 (0-2) % Neut # (Auto) 2800 (4849-6974) /uL Lymph # (Auto) 1200 (9895-7975) /uL [place] # (Auto) 200 (0-900) /uL Eos # (Auto) 0 (0-450) /uL Baso # (Auto) 0 (0-100) /uL PT 11.4 (10.1-12.7) SECONDS INR 1.0 (0.9-1.3) APTT 23 L (26.4-36.2) SECONDS D-Dimer < 200 (<230) ng/mL Sodium 139 (137-145) mmol/L Potassium 3.8 (3.4-5.1) mmol/L Chloride 104 (98-107) mmol/L Carbon Dioxide 29 (22-32) mmol/L BUN 15 (7-17) mg/dL Creatinine 0.67 (0.52-1.04) mg/dL Estimated GFR > 60.0 (>60) mL/min BUN/Creatinine Ratio 22.4 H (6-22) Glucose 125 H (70-100) mg/dL Calcium 9.5 (8.4-10.2) mg/dL Magnesium 1.9 (1.6-2.3) mg/dL Total Bilirubin 0.7 (0.2-1.3) mg/dL AST 30 (14-36) IU/L ALT 21 (<35) IU/L Alkaline Phosphatase 53 (38-126) U/L Total Creatine Kinase 36 (30-135) U/L CK-MB (CK-2) TNP CK-MB (CK-2) Rel Index TNP Troponin I < 0.012 (0.01-0.034) ng/mL Total Protein 7.8 (6.3-8.2) g/dL Albumin 4.5 (3.5-5.0) g/dL Globulin 3.3 (1.7-4.1) g/dL Albumin/Globulin Ratio 1.4 (1.0-2.8) TSH (0.47-4.68) uIU/mL U Opiates 300ng/mL cut (Negative) Ur Oxycodone Screen (Negative) Urine Methadone Screen (Negative) Ur Barbiturates Screen (Negative) U Tricyclic Antidepress (Negative) Ur Phencyclidine Scrn (Negative) Ur Amphetamines Screen (Negative) U Methamphetamines Scrn (Negative) Ur MDMA Scrn (Ecstasy) (Negative) U Benzodiazepines Scrn (Negative) Urine Cocaine Screen (Negative) U Marijuana (THC) Screen (Negative) 02/11/21 02/11/21 Range/Units 09:07 09:51 WBC (4.5-11.0) X10^3/uL RBC (4.0-5.2) X10^6/uL Hgb (12.0-16.0) g/dL Hct (36-46) % MCV (80-100) fL MCH (26-34) PG MCHC (30-36) % RDW (11.6-14.8) % Plt Count (150-400) X10^3/uL Neut % (Auto) (50-75) % Lymph % (Auto) (25-40) % [place] % (Auto) (3-14) % Eos % (Auto) (2-4) % Baso % (Auto) (0-2) % Neut # (Auto) (1950-8501) /uL Lymph # (Auto) (1398-5819) /uL [place] # (Auto) (0-900) /uL Eos # (Auto) (0-450) /uL Baso # (Auto) (0-100) /uL PT (10.1-12.7) SECONDS INR (0.9-1.3) APTT (26.4-36.2) SECONDS D-Dimer (<230) ng/mL Sodium (137-145) mmol/L Potassium (3.4-5.1) mmol/L Chloride (98-107) mmol/L Carbon Dioxide (22-32) mmol/L BUN (7-17) mg/dL Creatinine (0.52-1.04) mg/dL Estimated GFR (>60) mL/min BUN/Creatinine Ratio (6-22) Glucose (70-100) mg/dL Calcium (8.4-10.2) mg/dL Magnesium (1.6-2.3) mg/dL Total Bilirubin (0.2-1.3) mg/dL AST (14-36) IU/L ALT (<35) IU/L Alkaline Phosphatase (38-126) U/L Total Creatine Kinase (30-135) U/L CK-MB (CK-2) CK-MB (CK-2) Rel Index Troponin I (0.01-0.034) ng/mL Total Protein (6.3-8.2) g/dL Albumin (3.5-5.0) g/dL Globulin (1.7-4.1) g/dL Albumin/Globulin Ratio (1.0-2.8) TSH 3.94 (0.47-4.68) uIU/mL U Opiates 300ng/mL cut Negative (Negative) Ur Oxycodone Screen Negative (Negative) Urine Methadone Screen Negative (Negative) Ur Barbiturates Screen Negative (Negative) U Tricyclic Antidepress Negative (Negative) Ur Phencyclidine Scrn Negative (Negative) Ur Amphetamines Screen Negative (Negative) U Methamphetamines Scrn Negative (Negative) Ur MDMA Scrn (Ecstasy) Negative (Negative) U Benzodiazepines Scrn Negative (Negative) Urine Cocaine Screen Negative (Negative) U Marijuana (THC) Screen Negative (Negative) Point of Care Testing Test Results Negative Imaging Data Chest x-ray: Radiologist's Impresson: [address] [id number] XRay Report Signed Patient: Aolndra Martin MR#: [id number] : 1980 Acct:[id number] Age/Sex: 41 / F Date of Service: 02/11/21 Loc: ED Accession Number: [id number] ?? Procedure: XR chest 1V Ordering Provider: Lyndsey Galvez D.O. PROCEDURE:? XR CHEST 1V ? INDICATIONS:? Arrhythmia ? TECHNIQUE:? One view of the chest was acquired.? ? COMPARISON:? None. ? FINDINGS:? ? Surgical changes and devices:? None.? ? Lungs and pleura:? Lungs are clear.? No pleural effusions or pneumothorax.? ? Mediastinum:? Mediastinal contours appear normal.? Heart size is normal.? ? Bones and chest wall:? No suspicious bony lesions.? Overlying soft tissues appear unremarkable.? ? IMPRESSION:? No evidence acute pulmonary process. ? ? ? Dictated by: Gaurav Acosta M.D. on 02/11/2021 at 9:47 ? ? Approved by: Gaurav Acosta M.D. on 02/11/2021 at 9:48? ECG Data Attestation: I personally reviewed and interpreted this ECG as follows: Prior ECG tracings: not available for review Interpretation: Sinus tachycardia, rate of 136 AK 128 QRS 84 and QTC of 451. Patient has slight depression in 2 3 AVF foot this may be secondary to tachycardia. No other acute changes appreciated. MDM Narrative Medical decision making narrative: This is a 41-year-old female comes with complaint of elevated heart rate. Patient states she has had persistently elevated heart rate for about a month. She noted it was becoming more frequent after exercise, hot showers or exposure to heat. It would normalize when she was resting or sleeping. Today she states it has been more elevated for prolonged period time. She had a syncopal episode 3 weeks ago but has not had any other events. Patient has platelets of 132, WBC of 4.4. Dimer is negative. Troponin is negative. Patient is normal removed fluids and electrolytes. She is quite thin but TSH is negative. Patient has negative RDS. I spoke with Cardiology who is happy to see the patient they feel that they are appropriate to be discharged home. Patient is going to continue to monitor heart and we discussed strict return precautions. She is going to contact Cardiology to follow up she has seen the screw before about 1 2 years ago and had an echo which was reviewed which was normal at that time with no major changes. 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 Patient's heart rate had some mild improvement in the department here after a L fluids but it took quite some time for it to improve while she was resting. Discharge Plan Departure Patient Disposition: Home Clinical Impression: Tachycardia Instructions: DI for Tachycardia Activity Restrictions/Additional Instructions: You do appear to have a persistently tachycardic heart rate here in the department. The exact source or cause today is not found. I did review her prior echo as well as her prior imaging. There is a cyst that is imaged on the liver and not the heart on multiple CTs. There are no clear changes to your lab work, imaging that defined why you are having this tachycardia but I spoke with cardiology, Dr. Eaton who does recommend you see them shortly. They ask for a phone call to follow-up and they have been faxed your lab work today. Please take a copy of your EKG with you. Please do return if you have have any chest pain, shortness of breath, lightheadedness or passing out, if your heart rate is becoming more persistently elevated, new swelling in her extremities, nausea or vomiting or other new or concerning symptoms. Prescriptions: No Action lorazepam 0.5 mg tablet 0.5 mg PO DAILY PRN (Reason: anxiety) Qty: 7 RF: 0 polyethylene glycol 3350 [Miralax] 119 GM powder 17 gm PO Q DAY Qty: 0 RF: 0 montelukast [Singulair] 10 MG tablet 10 mg PO QDAY Qty: 0 RF: 0 MULTIVITAMIN 1 tab PO QDAY Qty: 0 RF: 0 [CALCIUM & VIT D] PO QDAY Qty: 0 RF: 0 ferrous sulfate [Iron (ferrous sulfate)] 325 mg (65 mg iron) tablet 325 mg PO DAILY Qty: 0 RF: 0 sertraline 50 mg tablet 50 mg PO DAILY Qty: 30 RF: 5 liothyronine [Cytomel] 5 mcg tablet 5 mcg PO DAILY RF: 0 levothyroxine 88 mcg tablet 88 mcg PO DAILY RF: 0 probiotic PO RF: 0 B Complex Plus Vitamin C 17-47-51-5-300 mg capsule 1 cap PO DAILY RF: 0 eletriptan 40 mg tablet 40 mg PO Q2-4H PRN (Reason: migraine headache) Qty: 12 RF: 11 Referrals: Enrike Hummel MD [Primary Care Provider] - Andriy Eaton MD [Physician] -
[2021-02-11 09:50] LABS: Troponin I < 0.012 ng/mL (0.01-0.034)
[2021-02-11 10:05] LABS: UR Morphine/Opiate cutoff 300 Negative (Negative); Ur Creatinine Normal (Normal); Ur Specific Gravity Normal (Normal); Urine Amphetamines Negative (Negative); Urine Barbiturates Negative (Negative); Urine Benzodiazepines Negative (Negative); Urine Cocaine Negative (Negative); Urine MDMA Negative (Negative); Urine Methadone Negative (Negative); Urine Methamphetamines Negative (Negative); Urine Oxycodone Negative (Negative); Urine Phencyclidine Negative (Negative); Urine Tetrahydrocannabinol Negative (Negative); Urine Tricyclic Antidepressant Negative (Negative); Urine pH Normal (Normal)
[2021-02-11 10:20] LABS: Thyroid Stimulating Hormone 3.94 uIU/mL (0.47-4.68)
== END 2021-02-11 12:03 | disposition home or self-care (01) ==
PROVIDERS: Emergency Provider Emergency Medicine; PCP Family Medicine
DX: R00.0 Tachycardia, unspecified (principal)
CPT/HCPCS: 36415; 71045; 80053; 80305; 81025; 82550; 83735; 84443; 84484; 85025; 85379; 85610; 85730; 93005; 93010; 96360; 99284

== ENCOUNTER → 2021-02-12 15:58 | Outpatient (CLI) | payer OTHER, SELFPAY ==
[2021-02-12 17:27] LABS: Free T4, Direct Thyroxine 1.21 ng/dL (0.78-2.19)
[2021-02-12 17:41] LABS: Thyroid Stimulating Hormone 2.49 uIU/mL (0.47-4.68)
[2021-02-13 07:09] LABS: Triiodothyronine T3 Total 105 ng/dL (71-180)
[2021-02-17 20:39] LABS: Creatinine, 24 Urine 794 mg/24 hr (800-1800); Creatinine,Urine 44.1 mg/dL (Not Estab.); Dopamine, Ur 24hr 180 ug/24 hr (0-510); Epinephrine, U 24hr 5 ug/24 hr (0-20); Norepinephrine Ur 24hr 29 ug/24 hr (0-135)
== END ==
PROVIDERS: PCP Family Medicine; Referring Provider Internal Medicine Cardiovascular Disease; Visit Provider Internal Medicine Cardiovascular Disease
DX: R00.2 Palpitations (principal); R00.0 Tachycardia, unspecified; I49.3 Ventricular premature depolarization; E03.9 Hypothyroidism, unspecified
CPT/HCPCS: 36415; 82384; 83735; 84439; 84443; 84480

== ENCOUNTER → 2021-03-17 09:12 | Outpatient (CLI) | payer OTHER, SELFPAY ==
--- NOTE | 2021-03-17 | DI.ECHO.S_ITS ---
[facility]---------+ [facility] +---------+ : : [address] : : : : [id number] : : : : Phone: [phone]+ Echocardiogram Report + + :Name: ALLYSON MOSS Study Date: 03/17/2021 Height: 65 in : :[facility] ReadingLocation: Weight: 125 lb : : Gender: Female BSA: 1.6 m2 : :: 1980 Age: 41 yrs BP: 116/74 mmHg: :Reason For Study: VENTIRCULAR PREMATURE DEPOLARIZATION : :Ordering Physician: ENDY, : :KENNY Performed By: Sarah Padron : :Referring: KENNY SCHUMACHER : + + Interpretation Summary The left ventricle is normal in size and wall thickness. Left ventricular ejection fraction is estimated to be 50 +/- 5%. There is mild global hypokinesis of the left ventricle. Compared to the prior exam, the left ventricular function is reduced. The right ventricle is normal in size and function. No significant valvular pathology seen. The IVC is of normal diameter and collapses greater than 50% with a sniff. This suggests a low right atrial pressure of 3 mm Hg. Procedure: A two-dimensional transthoracic echocardiogram with color flow and Doppler was performed. The study quality was technically adequate. Comparison is made with the echocardiogram of 03/12/2020. The patient had occasional PVCs during the exam. The patient was in sinus rhythm with heart rates between 60-76 bpm during the exam. Left Ventricle: The left ventricle is normal in size and wall thickness. There is no thrombus. Left ventricular ejection fraction is estimated to be 50 +/- 5%. Compared to the prior exam, the left ventricular function is reduced. There is mild global hypokinesis of the left ventricle. Diastolic parameters suggest a relaxation abnormality of the left ventricle, consistent with probable normal filling pressures. Right Ventricle: The right ventricle is normal in size and function. Atria: The left atrial size is normal. Both atria have remained unchanged in size since the prior echo exam. Right atrial size is normal. There is no Doppler evidence for an interatrial shunt. Mitral Valve: The mitral valve leaflets appear mildly thickened, but open well. There is mild mitral regurgitation. Aortic Valve: The aortic valve is trileaflet. The aortic valve opens well. There is no aortic valve stenosis. No aortic regurgitation is present. Tricuspid Valve: The tricuspid valve is normal in structure and function. Pulmonary artery pressures cannot be estimated because of the lack of a measurable TR jet velocity but the IVC suggests a CVP of around 3 mmHg. There is a trace or physiologic amount of tricuspid regurgitation. Pulmonic Valve: The pulmonic valve leaflets are thin and pliable; valve motion is normal. There is no pulmonic valvular regurgitation. Great Vessels: The aortic root is normal size. The ascending aorta could not be visualized. The IVC is of normal diameter and collapses greater than 50% with a sniff. This suggests a low right atrial pressure of 3 mm Hg. Pericardium/ Pleura There is no pericardial effusion. There is no pleural effusion. Incidental finding of a hepatic cyst measuring approximately 5.4cm x 3.8cm is noted. It was seen in the previous study as well. MMode/2D Measurements & Calculations LVIDd: 4.9 cm LVOT diam: 2.0 cm LVIDs: 3.6 cm Ao root diam: 2.8 cm FS: 27.5 % Ao Arch Diam (Prox Trans): 2.4 cm IVSd: 0.63 cm LVPWd: 0.63 cm LV whitney. diameter/BSA (cm/m^2): 3.0 LV sys. diameter/BSA (cm/m^2): 2.2 LA A2 area: 15.3 cm2 RA long axis: 3.9 cm LA A4 area: 13.4 cm2 RA area: 8.9 cm2 LA length (vol): 4.6 cm RA vol: 16.9 ml LA vol: 37.7 ml RA : 10.5 ml/m2 LA vol index: 23.3 ml/m2 IVC diam: 2.0 cm RVD1 (basal): 2.8 cm TAPSE: 1.7 cm Doppler Measurements & Calculations Ao V2 max: 111.6 cm/sec LVOT Max [place]: 66.8 cm/sec Ao V2 mean: 81.5 cm/sec LV V1 max P.8 mmHg Ao max P.0 mmHg LV V1 VTI: 13.7 cm Ao mean P.9 mmHg PAWEL(I,D): 1.7 cm2 Ao V2 VTI: 24.8 cm PAWEL(V,D): 1.9 cm2 sev ratio: 0.55 PAWEL indexed to BSA (cm^2/m^2): 1.1 MV E max kota: 63.0 cm/sec PA V2 max: 65.6 cm/sec MV A max kota: 65.2 cm/sec PA V2 mean: 48.1 cm/sec MV E/A: 0.97 PA mean P.0 mmHg Med Peak E' Kota: 6.9 cm/sec PA pr(Accel): 22.5 mmHg E/E' med: 9.1 Lat Peak E' Kota: 8.0 cm/sec E/E' lat: 7.8 E/e' average: 8.5 MV dec time: 0.19 sec SV(LVOT): 42.7 ml Reading Physician:05:14 PM
== END ==
PROVIDERS: PCP Family Medicine; Referring Provider Internal Medicine Cardiovascular Disease; Visit Provider Internal Medicine Cardiovascular Disease
DX: I34.0 Nonrheumatic mitral (valve) insufficiency (principal); I49.3 Ventricular premature depolarization
CPT/HCPCS: 93306

== ENCOUNTER → 2021-03-22 08:27 | Outpatient (CLI) | payer OTHER, SELFPAY ==
[2021-03-22 14:33] LABS: COVID19 -Nasal RAPID Negative (Negative)
== END ==
PROVIDERS: PCP Family Medicine; Visit Provider Nurse Practitioner Family
DX: Z20.822 Contact with and (suspected) exposure to COVID-19 (principal); Z01.812 Encounter for preprocedural laboratory examination
CPT/HCPCS: 87635

== ENCOUNTER → 2021-03-23 10:31 | Outpatient (CLI) | payer OTHER, SELFPAY ==
--- NOTE | 2021-03-23 17:48 | DI.NM.S_ITS ---
DATE OF SERVICE: PROCEDURE: Exercise stress test. DATE OF STUDY: 03/23/2021 INDICATIONS: Palpitation, dizziness, shortness of breath, PVCs. CARDIAC STRESS: The patient underwent exercise stress test under the supervision of an attending staff. She walked on [place] protocol for 10 minutes and achieved 102 percent of target heart rate. Normal blood pressure response. Baseline blood pressure 104/60 mmHg. Peak blood pressure 142/86 mmHg. Baseline heart rate was sinus with heart rate 98. Maximum heart rate 181 beats per minute. The patient achieved 102 percent of target heart rate, around 9.9 METS of workload, as well as functional aerobic impairment -16 percent. No chest pain. [place] some shortness of breath. Baseline rhythm was sinus with some repolarization changes and some flattening in inferior lateral leads, as well as some PVCs. During exercise, PVCs got suppressed. No convincing ischemic changes seen. No significant sustained arrhythmias during exercise. CONCLUSION: Exercise stress test is negative for inducible ischemia. Normal hemodynamic response. Walked on [place] protocol for 10 minutes. Achieved ARCHANA - 16 percent. No chest pain. Resting some PVCs which got suppressed during exercise. Overall low-risk exercise stress test. Alondra Martin - CAMPOS/wendy/eyn doc#: [id number]/job#: [id number] dd: 03/23/2021 17:15:00 dt: 03/23/2021 17:31:00 DICTATING /COPIES TO: Niru Weinstein MD COPIES MNE: LESLIE;
== END ==
PROVIDERS: PCP Family Medicine; Referring Provider Internal Medicine Cardiovascular Disease; Visit Provider Internal Medicine Cardiovascular Disease
DX: R06.02 Shortness of breath (principal); R42 Dizziness and giddiness; I49.3 Ventricular premature depolarization
CPT/HCPCS: 93017

== ENCOUNTER → 2021-07-27 10:35 | Outpatient (CLI) | payer OTHER, SELFPAY ==
--- NOTE | 2021-07-27 | DI.MG.S_ITS ---
BILATERAL DIGITAL SCREENING MAMMOGRAM 3D/2D WITH CAD WITH AUGMENTATION: 07/27/2021 CLINICAL: Routine screening. Comparison is made to exams dated: 12/27/2019 breast MRI, 12/27/2019 mammogram, 04/10/2019 mammogram, 04/04/2018 mammogram, 04/03/2017 mammogram, and 03/30/2015 mammogram - [facility]. The tissue of both breasts is heterogeneously dense. This may lower the sensitivity of mammography. Current study was also evaluated with a Computer Aided Detection (CAD) system. Bilateral breast implants are stable and intact. There are benign calcifications in both breasts. No significant masses, calcifications, or other findings are seen in either breast. There has been no significant interval change. IMPRESSION: BENIGN There is no mammographic evidence of malignancy. A 1 year screening mammogram is recommended. This exam was interpreted at Station ID: [id number]. NOTE: For mammograms, a report in lay terms will be sent to the patient. Approximately 15% of breast malignancies will not be visualized mammographically. In the management of a palpable breast mass, a negative mammogram must not discourage biopsy of a clinically suspicious lesion. Electronically Signed By: Sam che/shekhar:07/27/2021 12:49:52 copy to: Vangie Berger, Sabina Ramires, ph: [phone], fax: [phone] letter sent: Normal Exam ACR BI-RADS Category 2: Benign Finding(s) [id number]
== END ==
PROVIDERS: PCP Family Medicine; Referring Provider Family Medicine; Visit Provider Family Medicine
DX: Z12.31 Encounter for screening mammogram for malignant neoplasm of breast (principal)
CPT/HCPCS: 77063; 77067

== ENCOUNTER → 2021-11-19 14:38 | Outpatient (CLI) | payer OTHER, SELFPAY | PROVIDERS: PCP Family Medicine; Visit Provider Physician Assistant | DX: R10.2 Pelvic and perineal pain (principal) | CPT/HCPCS: 87086 ==

== ENCOUNTER → 2021-11-20 10:05 | Outpatient (CLI) | payer OTHER, SELFPAY ==
[2021-11-20 11:10] LABS: Free T3, Triiodothyronine Free 3.27 pg/mL (2.77-5.27); Free T4, Direct Thyroxine 1.16 ng/dL (0.78-2.19)
[2021-11-20 11:23] LABS: Thyroid Stimulating Hormone 1.07 uIU/mL (0.47-4.68)
== END ==
PROVIDERS: PCP Family Medicine; Referring Provider Physician Assistant; Visit Provider Physician Assistant
DX: E03.9 Hypothyroidism, unspecified (principal); N91.2 Amenorrhea, unspecified
CPT/HCPCS: 36415; 84439; 84443; 84481

== ENCOUNTER → 2022-03-22 10:47 | Outpatient (CLI) | payer OTHER, SELFPAY ==
--- NOTE | 2022-03-22 10:51 | DI.US.S_ITS ---
PROCEDURE: US ABDOMEN LIMITED INDICATIONS: cyst found on CT 04/2020, follow up exam TECHNIQUE: Real-time focused scanning was performed of the abdomen, with image documentation. COMPARISON: [facility], CT, CT ABDOMEN WO/W CON, 05/14/2020, 10:12. FINDINGS: Liver measures 16 cm. Hypoechoic focus with septation measuring 3.7 x 4.2 x 4.4 cm. Nonmobile foci of echogenicity are present in the gallbladder. Wall thickness is normal and measures 1.4 mm. Common bile duct measures 4.6 mm. Pancreas is within normal limits. No free fluid. IMPRESSION: Simple septated hepatic cyst, unchanged compared to 05/14/2020. Non mobile increased echogenicity within the gallbladder suggestive of polyp versus adherent sludge. Dictated by: Cassy Quezada M.D. on 03/22/2022 at 16:58 Approved by: Cassy Quezada M.D. on 03/22/2022 at 17:01
== END ==
PROVIDERS: PCP Family Medicine; Referring Provider Physician Assistant; Visit Provider Physician Assistant
DX: K76.89 Other specified diseases of liver (principal)
CPT/HCPCS: 76705

== ENCOUNTER → 2022-08-01 13:55 | Outpatient (CLI) | payer OTHER, SELFPAY ==
--- NOTE | 2022-08-01 | DI.MG.S_ITS ---
BILATERAL DIGITAL SCREENING MAMMOGRAM 3D/2D WITH CAD WITH AUGMENTATION: 08/01/2022 CLINICAL: Routine screening. Comparison is made to exams dated: 07/27/2021 mammogram, 12/27/2019 mammogram, and 04/10/2019 mammogram - [facility]. Both breasts are heterogeneously dense, which may obscure small masses (category c / 51-75% glandular tissue). Current study was also evaluated with a Computer Aided Detection (CAD) system. Bilateral breast implants are stable and intact. There are benign diffuse calcifications in both breasts. No significant masses, calcifications, or other findings are seen in either breast. There has been no significant interval change. IMPRESSION: BENIGN There is no mammographic evidence of malignancy. A 1 year screening mammogram is recommended. Based on the Tyrer Cuzick model (a risk assessment model) the patient's lifetime risk is 13.9% and her 10 year risk is 2.4%. According to the ACR, ACS, and NCCN guidelines, an annual breast MRI exam along with mammogram is recommended if the patient's lifetime risk is 20% or greater. This exam was interpreted at Station ID: [id number]. NOTE: For mammograms, a report in lay terms will be sent to the patient. Approximately 15% of breast malignancies will not be visualized mammographically. In the management of a palpable breast mass, a negative mammogram must not discourage biopsy of a clinically suspicious lesion. Electronically Signed By: Conor tam/shekhar:08/01/2022 16:16:52 copy to: Vangie Berger, Sabina Ramires, ph: [phone], fax: [phone] letter sent: Normal Exam ACR BI-RADS Category 2: Benign Finding(s) [id number]
== END ==
PROVIDERS: PCP Family Medicine; Referring Provider Family Medicine; Visit Provider Family Medicine
DX: Z12.31 Encounter for screening mammogram for malignant neoplasm of breast (principal)
CPT/HCPCS: 77063; 77067

== ENCOUNTER → 2022-09-05 06:55 | Outpatient (CLI) | payer OTHER, SELFPAY ==
[2022-09-05 08:55] LABS: Add Manual Diff / Slide Review NO; Basophils Absolute Auto 0 /uL (0-100); Eosinophils Absolute Auto 100 /uL (0-450); Eosinophils Percent Auto 3.5 % (2-4); Hematocrit 39.1 % (36-46); Hemoglobin 13.3 g/dL (12.0-16.0); Lymphocytes Absolute Auto 1300 /uL (1100-4500); Lymphocytes Percent Auto 35.9 % (25-40); Mean Corpuscular Hemoglobin 30.5 PG (26-34); Mean Corpuscular Volume 89.6 fL (80-100); Monocytes Absolute Auto 300 /uL (0-900); Monocytes Percent Auto 7.4 % (3-14); Neutrophils Absolute Auto 1900 /uL (1500-7000); Neutrophils Percent Auto 52.2 % (50-75); Platelet Count 135 X10^3/uL (150-400); Red Blood Cell Count 4.36 X10^6/uL (4.0-5.2); Red Cell Distribution Width 12.6 % (11.6-14.8); White Blood Cell Count 3.6 X10^3/uL (4.5-11.0)
[2022-09-05 09:34] LABS: Alanine Aminotransferase 19 IU/L (<35); Albumin 3.6 g/dL (3.5-5.0); Albumin Globulin Ratio 1.4 (1.0-2.8); Alkaline Phosphatase 43 U/L (38-126); Aspartate Aminotransferase 23 IU/L (14-36); Bilirubin Total 0.6 mg/dL (0.2-1.3); Blood Urea Nitrogen 16 mg/dL (7-17); Calcium 8.9 mg/dL (8.4-10.2); Carbon Dioxide 30 mmol/L (22-32); Chloride 104 mmol/L (98-107); Cholesterol 161 mg/dL (140-199); Estimated Glomerular Filt Rate > 60 mL/min (>60); Globulin 2.6 g/dL (1.7-4.1); Glucose 85 mg/dL (70-100); HDL Cholesterol 70 mg/dL (40-60); HEMOLYSIS < 15 (0-50); LDL Cholesterol Calculated 56 mg/dL (<100); Potassium 4.1 mmol/L (3.4-5.1); Sodium 138 mmol/L (137-145); Total Protein 6.2 g/dL (6.3-8.2); Triglycerides 176 mg/dL (35-150)
[2022-09-05 09:56] LABS: TSH w/ Reflex to FT4 2.19 uIU/mL (0.47-4.68)
== END ==
PROVIDERS: PCP Family Medicine; Referring Provider Family Medicine; Visit Provider Family Medicine
DX: E03.9 Hypothyroidism, unspecified (principal)
CPT/HCPCS: 36415; 80053; 80061; 84443; 85025